=== PATIENT | male | born 1960 | race Caucasian/White ===

== ENCOUNTER 2024-04-27 14:43 | Emergency (ER) | payer MEDICAID ==
[~2024-04-27] VITALS: Ht 165.1 cm; Wt 78.0 kg
[2024-04-27 14:50] VITALS: TEMP 98.1; O2SAT 99
[2024-04-27 15:27] VITALS: BP 122/72; PULSE 61; RESP 11
[2024-04-27] MEDS: HYDROCODONE/ACETAMINOPHEN 5/325MG TABLET PO ONE (15:30)
== END 2024-04-27 16:11 ==
LOC: ER 14:43
DX: K40.90 Unilateral inguinal hernia, without obstruction or gangrene, not specified as recurrent (principal); J44.9 Chronic obstructive pulmonary disease, unspecified; D64.9 Anemia, unspecified
CPT/HCPCS: 99283